=== PATIENT | female | born 1995 | race Caucasian/White ===

== ENCOUNTER → 2017-08-14 | Outpatient (CLI) | payer OTHER ==
[2017-08-14 19:53] LABS: T.VAGINALIS (WET MOUNT) NO TRICHOMONAS SEEN; YEAST (WET MOUNT) NO YEAST SEEN
[2017-08-14 19:54] LABS: BACTERIA (WET MOUNT) 4+ BACTERIA SEEN; EPITHELIALS (WET MOUNT) 3+ EPITHELIALS SEEN; WBCS (WET MOUNT) 1+ WBCS SEEN
[2017-08-14 20:41] LABS: CHLAM PCR DETECTED (NOT DETECT); GON PCR NOT DETECTED (NOT DETECT)
== END ==
LOC: LAB 18:55
PROVIDERS: ATTEND Nurse Practitioner Acute Care
DX: N39.0 Urinary tract infection, site not specified (principal); N89.8 Other specified noninflammatory disorders of vagina
CPT/HCPCS: 87086; 87210; 87491; 87591

== ENCOUNTER 2017-09-11 18:06 | Emergency (ER) | payer OTHER ==
--- NOTE | 2017-09-11 19:41 | ER Document Report ---
HPI - HPI Patient complains to provider of: possible genital warts Onset: Yesterday Onset/Duration: Sudden Pain Level: 4 Context: 22 yo female taking doxycycline and flagyl for pelvic pain and chlamydia is not worried that she has genital warts at the vaginal opening. Associated Symptoms: None Exacerbated by: Denies Relieved by: Denies - ROS ROS below otherwise negative: Yes Systems Reviewed and Negative: Yes All other systems reviewed and negative Past Medical History - General Information source: Patient - Social History Smoking Status: Never Smoker Chew tobacco use (# tins/day): No Frequency of alcohol use: Rare Drug Abuse: None Lives with: Spouse/Significant other Family History: Reviewed & Not Pertinent Patient has suicidal ideation: No Patient has homicidal ideation: No - Medical History Medical History: Negative Renal/ Medical History: Denies: Hx Peritoneal Dialysis Surgical Hx: Negative Vertical Provider Document - CONSTITUTIONAL Agree With Documented VS: Yes Exam Limitations: No Limitations General Appearance: No Apparent Distress - INFECTION CONTROL TRAVEL OUTSIDE OF THE [place] IN LAST 30 DAYS: No - HEENT HEENT: Normocephalic - NECK Neck: Supple - RESPIRATORY Respiratory: Breath Sounds Normal, No Respiratory Distress O2 Sat by Pulse Oximetry: 99 - CARDIOVASCULAR Cardiovascular: Regular Rate, Regular Rhythm - GI/ABDOMEN Gastrointestinal: Abdomen Soft, Abdomen Non-Tender, No Organomegaly - REPRODUCTIVE Notes: white inflamed introitus, suspicious for philip, no warts. - MUSCULOSKELETAL/EXTREMETIES Musculoskeletal/Extremeties: MAEW - NEURO Level of Consciousness: Awake, Alert Course - Vital Signs Vital signs: Temp Pulse Resp BP Pulse Ox 98.5 F 66 16 95/60 L 99 09/11/17 18:18 09/11/17 18:18 09/11/17 18:18 09/11/17 18:18 09/11/17 18:18 Discharge - Discharge Clinical Impression: introitus philip Condition: Good Disposition: HOME, SELF-CARE Instructions: Topical Antifungal ([facility]), Vaginal Yeast Infection ([facility]) Additional Instructions: no douching lawrence CAMERON for the std culture results at [phone] Diflucan once Topical Monistat twice a day for a week see [facility] for recheck Prescriptions: Fluconazole [Diflucan] 150 mg PO ONCE PRN #1 tablet PRN Reason: Miconazole Nitrate [Monistat 7] 1 gm TOP BID #45 gm
[2017-09-11 20:08] VITALS: BP 103/52
[2017-09-11 21:30] LABS: CHLAM PCR NOT DETECTED (NOT DETECT); GON PCR NOT DETECTED (NOT DETECT)
== END 2017-09-11 20:08 | disposition home or self-care (01) ==
LOC: ER 18:06
DX: B37.3 Candidiasis of vulva and vagina (principal); R10.2 Pelvic and perineal pain
CPT/HCPCS: 87491; 87591; 99283